=== PATIENT | female | born 1995 | race Caucasian/White ===

== ENCOUNTER 2023-12-29 08:46 | Outpatient (CLI) | payer OTHER, SELFPAY ==
--- NOTE | ~2023-12-29 | US_ITS ---
EXAM: ABDOMEN ULTRASOUND HISTORY: Elevated liver enzymes. Concerned for fatty liver COMPARISON: None FINDINGS: LIVER: The liver is minimally increased in echogenicity and unremarkable in size measuring 18cm in lo ngitudinal dimension. GALLBLADDER: No stones are identified within the gallbladder. No gallbladder wall thickening or pericholecystic fluid. BILE DUCTS: Common bile duct measures 5.1mm. PANCREAS: Limited evaluation of the pancreas secondary to overlying bowel gas SPLEEN: The spleen is unremarkable in echogenicity and borderline increased in size measuring 11.8cm in longitudinal dimension. RIGHT KIDNEY: 11 cm. In length. No hydronephrosis or bulky renal calculi. LEFT KIDNEY: 11.8cm in length. No hydronephrosis or renal calculi. VASCULATURE : The abdominal aorta is nonaneurysmal. The IVC is patent. IMPRESSION: Minimal increase in echogenicity of the liver suggesting fatty infiltration. No stones within the gallbladder. Borderline increased in size spleen. Reviewed, dictated and finalized at location A.
== END 2023-12-29 08:47 | disposition home or self-care (01) ==
LOC: MICIMG 08:47
PROVIDERS: PCP Family Medicine; Visit Provider Family Medicine
DX: R74.8 Abnormal levels of other serum enzymes (principal)
CPT/HCPCS: 76700